=== PATIENT | female | born 1980 | race Caucasian/White ===

== ENCOUNTER 2021-05-06 16:04 | Emergency (ER) | payer OTHER, SELFPAY ==
[2021-05-06 16:06] VITALS: BP 145/90; PULSE 69; RESP 20; TEMP 36.8; O2SAT 98; BMI 20.9
[2021-05-06 16:17] VITALS: BP 145/90; PULSE 75; O2SAT 98
[2021-05-06 16:30] VITALS: BP 128/78; PULSE 74; O2SAT 100
[2021-05-06 17:00] VITALS: BP 139/91; PULSE 70; O2SAT 99
--- NOTE | 2021-05-06 17:10 | PC.NURSE ---
Pt up to restroom
[2021-05-06 17:30] VITALS: BP 137/89; PULSE 72; O2SAT 98
--- NOTE | 2021-05-06 19:00 | HMH.EDGENADL ---
ED Disposition Clinical Impression: Concussion Qualifiers: Encounter type: initial encounter Loss of consciousness presence/duration: without LOC Qualified Code(s): S06.0X0A - Concussion without loss of consciousness, initial encounter Disposition: Home, Self-Care Condition on Discharge: Good Referrals: Provider,Referral, [Primary Care Provider] - 3 days Time of Disposition: 19:03 - Critical Care Critical Care Time: No Attestation: On 05/06/21, the high probability of a clinically significant, sudden or life threatening deterioration of the following system(s) required my full and direct attention, intervention and personal management. The time I documented below is in addition to time spent performing reported procedures but includes the following listed in this critical care notation. Medical Decision Making - Medical Records Medical records reviewed: Yes: I reviewed the patient's medical records. - Isaiah Inquiry Pt receiving controlled substance: No Vital Signs: 05/06/21 16:06 05/06/21 16:17 05/06/21 16:30 Temperature 98.3 F Temperature Source Oral Pulse Rate 75 74 Pulse Rate [Left Radial] 69 Respiratory Rate 20 Blood Pressure 145/90 H 128/78 Blood Pressure [Right Arm] 145/90 H Blood Pressure Mean 113 104 Blood Pressure Mean [Right Arm] 108 Blood Pressure Source [Right Arm] Automatic Cuff Blood Pressure Position [Right Arm] Sitting 02 Sat by Pulse Oximetry 98 98 100 Oxygen Delivery Method Room Air 05/06/21 17:00 05/06/21 17:30 Temperature Temperature Source Pulse Rate 70 72 Pulse Rate [Left Radial] Respiratory Rate Blood Pressure 139/91 H 137/89 Blood Pressure [Right Arm] Blood Pressure Mean 101 109 Blood Pressure Mean [Right Arm] Blood Pressure Source [Right Arm] Blood Pressure Position [Right Arm] 02 Sat by Pulse Oximetry 99 98 Oxygen Delivery Method Medical Decision Narrative: 41yo F evaluated for signs and symptoms consistent with concussion. Physical exam is unremarkable. Lengthy discussion with patient regarding signs and symptoms of concussion, duration of symptoms. Discussed other possible etiologies of intracranial hemorrhage, skull fracture. Offered the patient a CAT scan though did voice my opinion that there would be little gained from it in way of clinical management. They defer CAT scan at this time. Counseled on avoidance of bright lights, loud noises, extremes of heat, dehydration. Counseled to take Tylenol and Motrin as needed for aches and pains. Stay well-hydrated. General Adult HPI - General Chief complaint: Dizziness Stated complaint: Weight from workout equipment fell on head, dizzy Time Seen by Provider: 05/06/21 19:00 Mode of Arrival: Ambulatory Limitations: No Limitations Description of Symptoms (Recalled from ER Triage Doc. by RN): c/o nausea and dizziness off and on since Thursday after approx 20 pds of weights hit her in the head while lifting. Denies any LOC - History of Present Illness HPI narrative: 41yo F presents to the emergency department after sustaining a head injury 2 days ago while lifting weights. Patient reports the cable machine accessory struck her in the right posterior aspect of the head. She has had waxing and waning headache, nausea, mild photosensitivity since that time. Since symptoms were continuing, she decided to seek further care. She denies any difficulty of gait, change in vision. [facility] History - Hepatitis A Screen Drug use history?: No High risk sexual behaviors?: No History of sexually transmitted infection?: No Currently employed?: No Childcare worker?: No Do you have indoor plumbing?: Yes Do you have electricity?: Yes Attestation statement:: This patient has been screened for Hepatitis A risk factors. I have reviewed the patient's past medical history: Yes Other Surgeries: Yes: No Previous Surgery - Social History Smoking Status: Never smoker Alcohol Intake: never Fami
[2021-05-06 19:09] VITALS: BP 137/89; PULSE 72; RESP 20; TEMP 36.8; O2SAT 98
== END 2021-05-06 19:10 | disposition home or self-care (01) ==
PROVIDERS: Emergency Provider Family Medicine
DX: S06.0X0A Concussion without loss of consciousness, initial encounter (principal); W22.8XXA Striking against or struck by other objects, initial encounter; Y92.89 Other specified places as the place of occurrence of the external cause
CPT/HCPCS: 99281

== ENCOUNTER → 2021-07-04 15:05 | Outpatient (CLI) | payer OTHER, SELFPAY ==
--- NOTE | 2021-07-04 15:10 | CT_ITS ---
PROCEDURE: CT HEAD/BRAIN WO CON CLINICAL INDICATION: WIGGINS head Trauma COMPARISON: No exams were available for comparison TECHNIQUE: Axial images obtained. All CT scans at the facility use one or more dose reduction, viz: automated exposure control, ma/kV adjustment per patient size (including targeted exams where dose is matched to indication, i.e. head), or iterative reconstruction technique. FINDINGS: No midline shift, mass effect, intracranial hemorrhage, hydrocephalus, or extra-axial fluid collection is evident. The calvarium has an unremarkable appearance. No mastoid effusion. No sinus air-fluid level. IMPRESSION: No acute intracranial finding Dictated by: Harsh Renae MD 07/04/2021 16:00 Harsh Renae MD in OV 07/04/2021 16:00
== END ==
PROVIDERS: PCP Nurse Practitioner Family; Visit Provider Nurse Practitioner Family
DX: S06.0X9A Concussion with loss of consciousness of unspecified duration, initial encounter (principal); R51.9 Headache, unspecified
CPT/HCPCS: 70450

== ENCOUNTER → 2021-10-01 17:47 | Outpatient (CLI) | payer OTHER, SELFPAY ==
[2021-10-01 19:11] LABS: Basophils # 0.1 K/mm3 (0-0.2); Eosinophils # 0.1 K/mm3 (0.0-0.4); Eosinophils % 1.6 % (0.1-12.0); Hematocrit 47.8 % (37.0-47.0); Hemoglobin 15.4 g/dL (12.2-16.2); Lymphocytes # 2.2 K/mm3 (0.7-4.5); Mean Corpuscular HGB Conc 32.3 g/dL (31.8-35.4); Mean Corpuscular Hemoglobin 30.4 pg (27.0-31.2); Mean Corpuscular Volume 94.1 fl (81-99); Mean Platelet Volume 12.2 fl (7.4-10.4); Monocytes # 0.3 K/mm3 (0.1-1.0); Monocytes % 7.1 % (1.7-9.3); Neutrophils # 2.1 K/mm3 (1.8-7.8); Neutrophils % 43.3 % (37.0-80.0); Platelet Count 253 K/mm3 (142-424); Red Blood Count 5.08 M/mm3 (4.20-5.40); Red Cell Distribution Width 14.1 % (11.5-17.5); White Blood Count 4.8 K/mm3 (4.8-10.8)
[2021-10-01 19:16] LABS: Alanine Aminotransferase 11 U/L (12-78); Albumin Level 4.4 g/dl (3.5-5.0); Albumin/Globulin Ratio 1.6 (1.1-1.8); Alkaline Phosphatase 52 U/L (38-126); Anion Gap 11.2 mEq/L (5-15); Aspartate Amino Transferase 32 U/L (14-36); Bilirubin,Total 0.5 mg/dl (0.2-1.3); Blood Urea Nitrogen 10 mg/dl (7-17); Calcium 9.6 mg/dl (8.4-10.2); Carbon Dioxide 28 mmol/L (22.0-30.0); Chloride 104 mmol/L (98-107); Chol/HDL Ratio 2.3 (1-3.5); Cholesterol 220 mg/dl (140-200); Estimated Glomerular Filt Rate 93 ml/min (>60); GFR (African American) 113 ML/MIN (>60); Globulin 2.7 g/dL (1.3-3.2); Glucose 88 mg/dl (74-100); HDL Cholesterol 97 mg/dl (40-60); Potassium 4.2 mmoL/L (3.5-5.1); Sodium 139 mmol/L (136-145); Total Protein,Serum 7.1 g/dl (6.3-8.2); Triglycerides 48 mg/dl (30-150); VLDL Cholesterol 10 mg/dL (0-40)
[2021-10-01 19:27] LABS: Direct LDL Cholesterol 103.25 mg/dL (100-129)
[2021-10-01 19:34] LABS: 25-OH Vitamin D, Total 31.8 ng/mL (30-100); T4 (Thyroxine) 7.1 ug/dl (5.53-11.0)
[2021-10-01 20:23] LABS: Thyroid Stimulating Hormone 1.52 uIU/mL (0.465-4.68)
== END ==
PROVIDERS: Visit Provider Nurse Practitioner Family
DX: Z00.00 Encounter for general adult medical examination without abnormal findings (principal)
CPT/HCPCS: 80053; 80061; 82306; 84436; 84443; 85025

== ENCOUNTER → 2022-01-08 14:13 | Outpatient (CLI) | payer OTHER, SELFPAY ==
--- NOTE | 2022-01-08 14:21 | XR_ITS ---
FINAL REPORT CLINICAL HISTORY: ABN EKG, SOB, PALPITATIONS FINDINGS: Two views of the chest were obtained. The heart size and pulmonary vascularity are within normal limits. The mediastinum is normal. No acute pulmonary abnormality is identified. There is no pneumothorax. The bony thorax is intact. IMPRESSION: No active cardiopulmonary disease. Reviewed, Interpreted and Dictated by John Lind III, MD Transcribed by Ramiro Almeida Authenticated by John Lind III, MD on 01/08/2022 03:40:03 PM [facility]
--- NOTE | 2022-01-08 14:44 | CA_ITS ---
APPROVED REPORT EXAM: Comprehensive 2D, Doppler, and color-flow Echocardiogram [employer] Helper: Renee Salamanca RVT Ht: 5 ft 4 in Wt: 136lbs BSA: 1.66 BP: 123/65 mmHg Indications: PALPS,ABN EKG 2D Dimensions LVOT 2.12 cm (M/F) 1.5-2.5 M-Mode Dimensions RVDd 1.71 cm (0.9-2.6) LA Diam 2.42 cm (1.9-4.0) LVDd 3.45 cm (3.5-5.7) Ao Diam 2.59 cm (2.0-3.7) LVDs 1.98 cm (3.5-5.7) IVSd 1.31 cm (0.6-1.1) PWd 0.81 cm (0.6-1.1) EF (Teich) 74.70% FS 42.60% EDV (Teich) 49.10 mL ESV (Teich) 12.40 mL LV Diastology E Decel Time 227.00 (160-240 msec) E/A Ratio 0.8 MED E' 8.10 (< 7 cm/sec) E'/MED E' Ratio 7.46 (>14) LAT E' 17.50 (<10 cm/sec) E/LAT E' Ratio 3.45 (>14) Aortic Valve AO Peak GR. 6.20 mmHg Mitral Valve MV E Max Ge. 60.00 (40-130 cm/s) MV A Velocity 75.00 (40-130 cm/s) E/A Ratio 0.80 MV Decel. Time 227.00 (160-240 ms) MV PHT 66.00 ms Pulmonary Valve PV Peak Velocity 105.00 (50-150 cm/s) Tricuspid Valve TR P. Velocity 214.00 cm/s RAP Estimate 10.00 mmHg RVSP 28.30 mmHg Left Ventricle Left atrium normal size, left ventricle is normal size, there is no concentric left ventricular hypertrophy, visually estimated ejection fraction 55% with no regional wall motion abnormality, diastolic parameters are within normal range. Right Ventricle Right atrium and right ventricle are normal size and contractility. Aortic Valve Aortic valve grossly normal, there is no aortic stenosis or aortic insufficiency. Mitral Valve Mitral valve grossly normal, there is trace mitral regurgitation. Tricuspid Valve Tricuspid grossly normal, there is trace tricuspid regurgitation, tricuspid rotation jet velocity is inadequate for calculation of the right ventricular systolic pressure. Pulmonic Valve Pulmonic valve is poorly visualized. Great Vessels Aortic root is normal size. Inferior vena cava is normal size with normal inspiratory collapse. Pericardium No significant pericardial effusion noted. Conclusion 1. Normal left ventricular size, preserved left ventricular systolic function, visually estimated ejection fraction 55% with no regional wall motion abnormality, diastolic parameters are within normal range. 2. Trace mitral and tricuspid regurgitation. 3. No significant pericardial effusion. 4. Inferior vena cava normal size with normal inspiratory collapse. Electronically signed by : Indra Craig MD 01/08/2022 20:13:54
== END ==
PROVIDERS: PCP Family Medicine; Visit Provider Family Medicine
DX: R00.0 Tachycardia, unspecified (principal); R94.31 Abnormal electrocardiogram [ECG] [EKG]
CPT/HCPCS: 71046; 93306

== ENCOUNTER 2023-01-20 17:26 | Emergency (ER) | payer OTHER, SELFPAY ==
[2023-01-20 18:40] VITALS: BP 141/68; PULSE 70; RESP 18; TEMP 36.8; O2SAT 97; BMI 25.0
--- NOTE | 2023-01-20 19:00 | EXP.UTC ---
Discharge Plan Disposition Patient Disposition: Home, Self-Care Condition: Good Prescriptions Prescriptions: New mupirocin 2 % ointment 1 applic topical TID 10 Days Qty: 22 0RF clindamycin HCl 300 mg capsule 300 mg PO Q8H 7 Days Qty: 21 0RF Referrals Follow up/Referrals: Provider,Referral, [Primary Care Provider] - See instructions Activity Restrictions/Add. Instructions Additional Instructions/Restrictions: Soak finger in warm epson salt water several times daily Use topical medication and make sure to apply around nailbed Take oral medicaiton as prescribed Follow up with your Family Doctor in the next 24-48 hours if no improvement and immediately if any woresning of symptoms Straight to ER if any life threatening symptoms Clinical Impressions Clinical Impression: Paronychia Instructions Patient Instructions: DI for Paronychia, Clindamycin, Mupirocin Discharge ED Provider: Aleyda Burciaga [facility] [place] HPI General Stated complaint: Left hand Index finger infected Mode of Arrival: Ambulatory Source of Information: Patient Limitations: No Limitations Time Seen by Provider: 01/20/23 19:00 Description of Symptoms (Recalled from Triage Doc. by RN): PATIENT C/O SWELLING AND PAIN TO LEFT INDEX FINGER X 1 WEEK. HEENT Symptoms (Recalled from RN notes): No Resp Symptoms (Recalled from RN notes): No Skin Symptoms (Recalled from RN notes): Yes MS Symptoms (Recalled from RN notes): No Functional Status (Recalled from RN notes): WNL History of Present Illness Provider Complaint: Patient states that she has been having pain and swelling to left index finger around her nail for about a week States that it has not got any better and this morning she tried to poke it see if she could get something out of it but was unable too because it is so hard so this evening she came in wanted to get something to help with the infection Related Data Previous Rx's Medication Instructions Recorded clindamycin HCl 300 mg capsule 300 mg PO Q8H 7 days #21 caps 01/20/23 mupirocin 2 % topical ointment 1 applic topical TID 10 days #22 01/20/23 grams Allergies Allergy/AdvReac Type Severity Reaction Status Date / Time No Known Allergies Allergy Verified 06/20/21 15:18 Worker's Comp Is this a Worker's Comp case?: No [facility] Disclaimer: The information contained in this section may have been updated after the patient was seen, as this information can be updated by other users. Social History Smoking Status: Never smoker alcohol intake: never current occupational status: employed Travel in the last 8 weeks: None housing: house ROS Obtained: Yes All systems reviewed & no additional complaints except as documented and Yes Systems reviewed as appropriate & no additional complaints except as documented Constitutional Constitutional: Reports system reviewed and no additional complaints, except as documented and Reports as per HPI ENT Ears, Nose, Mouth, and Throat: Reports system reviewed and no additional complaints, except as documented and Reports as per HPI Cardiovascular Cardiovascular: Reports system reviewed and no additional complaints, except as documented and Reports as per HPI Respiratory Respiratory: Reports system reviewed and no additional complaints, except as documented and Reports as per HPI Gastrointestinal Gastrointestingal: Reports system reviewed and no additional complaints, except as documented and as per HPI Integumentary/Breasts Skin/Breast: Reports system reviewed and no additional complaints, except as documented and Reports as per HPI Comments: redness and swelling to tip of left index finger around finger nail and moving down finger x 1 week Neurologic Neurologic: Reports system reviewed and no additional complaints, except as documented and Reports as per HPI Physical Exam General General appearance: alert and in no apparent distress Respiratory Respiratory exam: Present normal lung
[2023-01-20 19:07] VITALS: BP 141/68; PULSE 70; RESP 18; TEMP 36.8; O2SAT 97
== END 2023-01-20 19:20 | disposition home or self-care (01) ==
PROVIDERS: Emergency Provider Nurse Practitioner
DX: L03.012 Cellulitis of left finger (principal)
CPT/HCPCS: 99212; 99214; G0463

== ENCOUNTER → 2023-02-10 15:42 | Outpatient (CLI) | payer OTHER, SELFPAY ==
--- NOTE | 2023-02-10 15:49 | MM_ITS ---
PROCEDURE INFORMATION: Exam: Bilateral Diagnostic Breast Tomosynthesis Exam date and time: 02/10/2023 3:44 PM Age: 42 years old Clinical indication: Concern for bilateral breast tenderness and swelling during her menstrual cycle. No family history of breast cancer. TECHNIQUE: Imaging protocol: Bilateral Diagnostic tomosynthesis and 2D mammography including computer-aided detection (CAD) when performed. Unilateral or bilateral exam. COMPARISON: No relevant prior studies available. Baseline. FINDINGS: MAMMOGRAPHY: Breast composition: The breasts are heterogeneously dense, which may obscure small masses. Mass: None. Architectural distortion: None. Calcifications: No suspicious calcifications. Asymmetric density: None. Skin thickening: None. Axillary adenopathy: Questionably dense, not enlarged, axillary lymph nodes. IMPRESSION: Patient will be recalled for bilateral sonography including the axilla, for further evaluation of pain and swelling the well as questionably dense axillary lymph nodes bilaterally. Further evaluation of a painful abnormality should be based on clinical grounds regardless of radiographic findings or lack thereof. ASSESSMENT: BI-RADS Category 0: Incomplete- Need Additional Imaging Evaluation and/or Prior Mammograms for Comparison
== END ==
DX: N64.4 Mastodynia (principal)
CPT/HCPCS: 77062; 77066; G0279

== ENCOUNTER → 2023-09-18 13:45 | Outpatient (CLI) | payer OTHER, SELFPAY ==
--- NOTE | 2023-09-18 13:56 | US_ITS ---
PROCEDURE INFORMATION: Exam: US Right Breast, Complete US Left Breast, Complete Exam date and time: 09/18/2023 2:07 PM Age: 43 years old Clinical indication: Recall on the basis of screening mammogram 02/10/2023 for sonographic evaluation of questionable dense axillary lymph nodes bilaterally and concern for bilateral breast tenderness. TECHNIQUE: Imaging protocol: Complete ultrasound of all four quadrants of the right breast and the retroareolar regions, including ultrasound of the axilla when performed. Complete ultrasound of all four quadrants of the left breast and the retroareolar regions, including ultrasound of the axilla when performed. COMPARISON: MG MM DIG MAMM BI DX W/CAD 02/10/2023 3:44 PM FINDINGS: Breast: Bilateral sonography, all 4 quadrants, retroareolar and axilla. On the right, at 9 o'clock 4 cm from the nipple, probable slightly complicated avascular cyst measuring 0.5 x 0.4 x 0.2 cm. In the axilla, borderline axillary node with cortical thickness at 0.3 cm which is the upper limit of normal, the fatty hilum is maintained with no increased Doppler flow. On the left, probably complicated avascular cysts, at 12 o'clock 2 cm from the nipple measuring 0.4 x 0.4 x 0.2 cm, and at 5 o'clock 1 cm from the nipple measuring 0.2 x 0.2 0.3 cm. In the axilla, borderline abnormal axillary lymph node with cortical thickness of 0.4 cm, with fatty hilum is maintained with no increased Doppler flow. IMPRESSION: Probably benign complicated cysts on the right at 9 in the left 12 and 5 o'clock.Further evaluation of a painful abnormality should be based on clinical grounds regardless of radiographic findings or lack thereof. Borderline, more likely reactive, axillary lymph nodes, compared to February 2023. Suggest adding bilateral sonography in axillary sonography when the patient returns for screening mammogram in February 2024 unless otherwise clinically indicated. ASSESSMENT: BI-RADS Category 3: Probably benign
== END ==
PROVIDERS: PCP Family Medicine; Visit Provider Family Medicine
DX: N64.4 Mastodynia (principal); R92.8 Other abnormal and inconclusive findings on diagnostic imaging of breast
CPT/HCPCS: 76641

== ENCOUNTER 2023-11-17 13:20 | Outpatient (CLI) | payer OTHER, SELFPAY ==
--- NOTE | 2023-11-17 13:35 | XR_ITS ---
FINAL REPORT CLINICAL HISTORY: CHESTWALL PAIN/FATIGUE, S.O.A. COMPARISON: 01/08/2023 FINDINGS: Two views of the chest were obtained. The heart size and pulmonary vascularity are within normal limits. The mediastinum is normal. No acute pulmonary abnormality is identified. There is no pneumothorax. The bony thorax is intact. IMPRESSION: No active cardiopulmonary disease. Reviewed, Interpreted and Dictated by John Lind III, MD Transcribed by Geneva Brennan Authenticated and [facility]
== END 2023-11-17 23:59 ==
PROVIDERS: PCP Family Medicine; Visit Provider Family Medicine
DX: R07.89 Other chest pain (principal); R53.83 Other fatigue
CPT/HCPCS: 71046

== ENCOUNTER 2024-05-13 13:43 | Outpatient (CLI) | payer OTHER, SELFPAY ==
--- NOTE | 2024-05-13 14:04 | XR_ITS ---
FINAL REPORT CLINICAL HISTORY: DYSPENIA COMPARISON: 11/17/2023 FINDINGS: Two views of the chest were obtained. The heart size and pulmonary vascularity are within normal limits. The mediastinum is normal. No acute pulmonary abnormality is identified. There is no pneumothorax. The bony thorax is intact. IMPRESSION: No active cardiopulmonary disease. Reviewed, Interpreted and Dictated by John Lind III, MD Transcribed by Kassi Awad Authenticated and . [facility]
[2024-05-13 14:05] LABS: Reticulocyte % (Auto) 1.3 % (0.9-3.2)
[2024-05-13 15:24] LABS: Iron 101 ug/dL (37-170)
[2024-05-13 15:34] LABS: Total Iron Binding Capacity 362 ug/dL (265-497)
[2024-05-13 16:00] LABS: Ferritin 25.9 ng/ml (6.24-137)
[2024-05-13 17:20] LABS: Vitamin B12 559 pg/mL (239-931)
[2024-05-13 17:27] LABS: Folate > 20.00 ng/mL
[2024-05-17 13:18] LABS: D001-IgE D pteronyssinus <0.10 kU/L (Class 0); D002-IgE D farinae <0.10 kU/L (Class 0); E001-IgE Cat Dander <0.10 kU/L (Class 0); E005-IgE Dog Dander <0.10 kU/L (Class 0); E072-IgE Mouse Urine <0.10 kU/L (Class 0); G002-IgE Bermuda Grass <0.10 kU/L (Class 0); G006-IgE Timothy Grass <0.10 kU/L (Class 0); I006-IgE Cockroach, German <0.10 kU/L (Class 0); Immunoglobulin E, Total 50 IU/mL (6-495); M001-IgE Penicillium chrysogen <0.10 kU/L (Class 0); M002-IgE Cladosporium herbarum <0.10 kU/L (Class 0); M003-IgE Aspergillus fumigatus <0.10 kU/L (Class 0); M006-IgE Alternaria alternata <0.10 kU/L (Class 0); T001-IgE Maple/Box Elder <0.10 kU/L (Class 0); T003-IgE Common Silver Birch <0.10 kU/L (Class 0); T006-IgE Cedar, Mountain <0.10 kU/L (Class 0); T007-IgE Oak, White <0.10 kU/L (Class 0); T008-IgE Elm, American <0.10 kU/L (Class 0); T010-IgE Walnut <0.10 kU/L (Class 0); T011-IgE Maple Leaf Sycamore <0.10 kU/L (Class 0); T014-IgE Cottonwood <0.10 kU/L (Class 0); T015-IgE Ash, White <0.10 kU/L (Class 0); T022-IgE Pecan, Hickory <0.10 kU/L (Class 0); T070-IgE White Mulberry <0.10 kU/L (Class 0); W001-IgE Ragweed, Short <0.10 kU/L (Class 0); W011-IgE Thistle, Russian <0.10 kU/L (Class 0); W014-IgE Pigweed, Common <0.10 kU/L (Class 0); W018-IgE Sheep Sorrel <0.10 kU/L (Class 0)
== END 2024-05-13 23:59 | disposition home or self-care (01) ==
LOC: RAD 13:44
PROVIDERS: Visit Provider Nurse Practitioner
DX: R06.00 Dyspnea, unspecified (principal); J45.909 Unspecified asthma, uncomplicated
CPT/HCPCS: 36415; 71046; 82607; 82728; 82746; 82785; 83540; 83550; 85044; 86003